=== PATIENT | male | born 1985 | race African-American/Black ===

== ENCOUNTER → 2025-04-17 14:59 | Outpatient (REF) | payer OTHER, SELFPAY | LOC: RAD 14:59 | PROVIDERS: ATTENDING PHYSICIAN Family Medicine | DX: M54.50 Low back pain, unspecified (principal); M25.552 Pain in left hip | CPT/HCPCS: 72100; 73502 ==

== ENCOUNTER 2025-07-01 07:05 | Emergency (ER) | payer SELFPAY ==
[2025-07-01] VITALS (7 sets, daily range): BP systolic 139–159; BP diastolic 84–120; BMI 27.9
--- NOTE | 2025-07-01 07:25 | ED.GENMED ---
History of Present Illness
General
Chief Complaint: Abdominal Symptoms
Source: patient
Exam Limitations: none
Time Seen by Provider: 07/01/25 07:12
History of Present Illness
History of Present Illness:
39-year-old male intermittent vomiting x 4 days. No abdominal pain. Normal bowel movement yesterday. No fever. Symptoms became worse this morning. Tried a Reglan but threw it up. Feels much better now. Apparently was given saline and
droperidol by the medics. Still smokes marijuana.
Past History
Past History
ED Past Medical History: Arrthythmia (Palpitations) and Other (Hyperemesis cannabis syndrome,. Pancreatitis,); Negative HTN, Hypercholesterolemia or NIDDM
ED Past Surgical History: None
Social History
Tobacco: Other (occasional cigarette)
Alcohol: None
Drug: Marijuana
Personal: Single
Living: with family
Employment: Employed
Family History
Family History: Other (Mother has mitral valve prolapse. Paternal grandfather at age 50 of an AK. His father at age 45 of an AK.)
Review of Systems
Review of Systems
All Other Systems: Not applicable
Constitutional: Denies fever
Respiratory: Reports no symptoms
Cardiac: Reports no symptoms
Phy Exam
Physical Exam
Physical Exam:
GENERAL: Alert and oriented in no apparent distress
EYE: Orbits normal.
NECK: Supple
CARDIAC: Tachycardic and regular no murmur
LUNGS: Clear breath sounds,normal
ABDOMEN: Soft, without focal tenderness or distention
NEUROLOGICAL: Alert and oriented , grossly non-focal
SKIN: Warm and dry, no rash or lesion, no discoloration, skin intact.
MUSCULOSKELETAL: No edema,no deformity.Good color
PSYCH: Normal and appropriate interaction.
Course
Orders/Labs/Results
Orders:
Orders
07/01/25 07:22
CMP [Comprehensive Metabolic Panel] Urgent
Complete Blood Count/With Diff Urgent
Lipase Urgent
0.9% Sodium Chloride 1000 ml [Nss] 1,000 ml IV BOLUS
07/01/25 07:23
Electrocardiogram (*1) Stat
Reason for Study: Abdominal Pain
EKG- Treatment ONCE
07/01/25 10:43
Lactated Ringers [Lr] 1,000 ml IV BOLUS
07/01/25 10:58
Lactated Ringers [Lr] 1,000 ml IV BOLUS
07/01/25 11:09
B-Hydroxybutyrate Urgent
BMP [Basic Metabolic Panel] Urgent
Urinalysis Reflex To Culture Urgent
Date Specimen was Collected: 07/01/25
Time Specimen was Collected: 11:07
Urine Microscopic Reflex Cult Urgent
Abnormal Lab Results
07/01/25 07/01/25
07:22 11:09
WBC 14.2 H 10^3/uL
(4.8-10.8)
Abs Immat Gran (auto) 0.1 H 10^3/uL
(0-0.05)
Absolute Neuts (auto) 11.7 H 10^3/uL
(1.4-6.5)
Absolute Monos (auto) 0.7 H 10^3/uL
(0.1-0.6)
Immature Gran % 0.6 H %
(0-0.5)
Neutrophils % 82.5 H %
(42.2-75.2)
Lymphocytes % 11.8 L %
(20.5-51.1)
Carbon Dioxide 17 L mmol/L
(22-30)
Creatinine 2.1 H mg/dL 1.6 H mg/dL
(0.7-1.3) (0.7-1.3)
Glucose 158 H mg/dl 144 H mg/dl
(70-99) (70-99)
Calcium 10.5 H mg/dl
(8.4-10.2)
Total Protein 9.4 H g/dl
(6.3-8.2)
Albumin 5.7 H g/dl
(3.5-5.0)
Urine Ketones 3+ A
(Negative)
Ur Occult Blood Reflex 3+ A
(Negative)
Urine Albumin (Reflex) 2+ A
(Neg - Trace)
B-Hydroxybutyrate 1.92 H mmol/L
(0.02-0.27)
07/01/25 07:22
07/01/25 11:09
Vital Signs
Initial and Last Documented VS:
Initial Vital Signs
BP
147/120
07/01/25 07:12
Last Documented Vital Signs
Pulse Resp BP Pulse Ox
120 19 148/92 99
07/01/25 10:28 07/01/25 07:15 07/01/25 12:00 07/01/25 12:15
MDM/Problems Addressed
Differential Diagnosis Includes:
Patient symptoms all consistent with cyclical vomiting. He denies chest pain shortness of breath he has a totally benign abdomen. Feels much better after droperidol. Check labs electrolytes. IV fluids. Check EKG for QT interval.
*Pulse Oximetry
Patient hypoxic: no (98)
*Critical Care Note
Total Time (30-74mins, 75-104mins- exclusive of procedures): Not Applicable
Update Note
Update Note:
1045.... Patient has remained stable and nontoxic. He is trying nani sayda well without issues. He states he is currently asymptomatic. I was going to give him a second liter of fluids. However his IV was already pulled he is in no distress and
drinking nani sayda well without issues. I do not find any other serious issues explaining his tachycardia his previous vital signs of all been borderline tacky. I suspect it is all from his dehydration. Since he is drinking liquids well we will
hold off on further IV hydration and reputting an IV in. I am also reluctant to have him take antinausea medications with his QT interval. He was updated on this.
1230... Patient is doing well. No further nausea or vomiting. Heart rate improved and now in the 80s. Pulse ox 100%. Vital signs stable. Acidosis resolved. Creatinine improved. Has an elevated beta hydroxybutyrate but I feel this is all from
starvation. Discharged to follow-up
ED Attending Note
-
Portions of this chart may have been created with voice recognition software.� Occasional wrong word or��sound alike� substitutions may have occurred due to the inherent limitations of voice recognition software.
Discharge Plan
Departure
Patient Disposition: Home (Routine Discharge)
Date of Disposition: 07/01/25
Time of Disposition: 12:34
Patient with high blood pressure during this ER visit?: Yes
Discharge Problem:
Recurrent vomiting, Chronic renal insufficiency, Long QT interval
Instructions: Nausea and Vomiting, Adult (DC), Long QT syndrome, BLOOD PRESSURE
Prescriptions:
No Action
hydroxyzine pamoate [Vistaril] 25 MG capsule
25 mg PO BID PRN (Reason: anxiety) Qty: 20 0RF
ondansetron 4 MG tablet,disintegrating
4 mg PO BIDPRN PRN (Reason: nausea) Qty: 14 0RF
Referrals:
Sb Root DO [Family Provider, Family Practice] - Follow up in 2-3 days
Paul Cartagena MD [Active, Cardiology] - Next open appointment
Activity Restrictions/Additional Instructions:
Stay well-hydrated
Interventions
Interventions:
*Risk Screen - Suicide Last Done: 07/01/25 07:11
*General Assessment Last Done: 07/01/25 07:11
*Neglect/Abuse Screening Last Done: 07/01/25 07:11
*ED- Fall Risk Assessment Last Done: 07/01/25 07:11
*ED COVID-19 Vaccine History Last Done: 07/01/25 07:11
*ED Influenza Vaccine History Last Done: 07/01/25 07:11
*Nursing Disposition Last Done: 07/01/25 12:40
MG-Lpegdy-Hnlhsdhtwx Assessment Last Done: 07/01/25 07:11
Discharge Date and Time
Discharge Date/Time: 07/01/25 12:41
Print Language: MALDIVIAN
[2025-07-01] MEDS: NSS 1000 IV (07:27)
[2025-07-01 07:40] LABS: Hematocrit 44.7 % (39.0-52.0); Hemoglobin 15.7 g/dL (13.0-18.0); Mean Corp Hgb Conc. 35.1 g/dL (33.0-37.0); Mean Corpuscular Volume 80.8 fL (80.0-94.0); Nucleated Red Blood Cells % 0 % (-); Platelet Count 339 10^3/uL (130-400); Red Cell Dist. Width 13.6 % (11.5-14.5)
[2025-07-01 07:53] LABS: ALT (SGPT) 28 U/L (0-50); AST (SGOT) 34 U/L (17-59); Albumin 5.7 g/dl (3.5-5.0); Alkaline Phosphatase 68 U/L (38-126); Blood Urea Nitrogen 19 mg/dl (9-20); Calcium 10.5 mg/dl (8.4-10.2); Carbon Dioxide 17 mmol/L (22-30); Chloride 103 mmol/L (98-107); Estimated Creatinine Clearance 50 ml/min; Glucose 158 mg/dl (70-99); Lipase 103 U/L (23-300); Potassium 3.5 mmol/L (3.5-5.1); Sodium 140 mmol/L (135-145); Total Protein 9.4 g/dl (6.3-8.2); eGFR 40.31
[2025-07-01] MEDS: LR 1000 IV (11:08)
[2025-07-01 11:59] LABS: Blood Urea Nitrogen 19 mg/dl (9-20); Calcium 9.8 mg/dl (8.4-10.2); Carbon Dioxide 22 mmol/L (22-30); Chloride 102 mmol/L (98-107); Estimated Creatinine Clearance 66 ml/min; Glucose 144 mg/dl (70-99); Potassium 4.0 mmol/L (3.5-5.1); Sodium 139 mmol/L (135-145); eGFR 55.86
[2025-07-01 12:07] LABS: Urine Character Clear (Clear)
[2025-07-01 12:56] LABS: Urine Squamous Cell 0-2 /LPF (Few)
[2025-07-01 12:58] LABS: Urine White Cell 0-2 /HPF (0-5)
== END 2025-07-01 12:41 | disposition home or self-care (01) ==
LOC: EMR 07:05
PROVIDERS: EMERGENCY PHYSICIAN Emergency Medicine; FAMILY PHYSICIAN Family Medicine
DX: R11.2 Nausea with vomiting, unspecified (principal); N18.9 Chronic kidney disease, unspecified; R94.31 Abnormal electrocardiogram [ECG] [EKG]; F12.90 Cannabis use, unspecified, uncomplicated; Z72.0 Tobacco use; Z86.39 Personal history of other endocrine, nutritional and metabolic disease
CPT/HCPCS: 96360; 96361; 99284; 80048; 80053; 81003; 81015; 82010; 83690; 85025; 93005